=== PATIENT | female | born 1950 | race Caucasian/White ===

== ENCOUNTER 2021-09-16 18:30 | Emergency (ER) | payer MEDICARE, OTHER ==
[~2021-09-16] VITALS: Ht 157.5 cm; Wt 61.7 kg
--- NOTE | 2021-09-16 18:58 | ED General ---
General Stated Complaint: SICK,WEAK,V/D,Pain R LEG, SWELLING Source of Information: Patient History of Present Illness Date Seen by Provider: Sep 16, 2021 Time Seen by Provider: 18:52 Initial Comments PT ARRIVES VIA POV FROM HOME, WANTS WHEELCHAIR ON ARRIVAL DUE TO LEG PAIN PT WITH MULTITUDE OF COMPLAINTS STATES SHE "JUST DOESN'T FEEL GOOD" X 1 1/2 WEEKS C/O PAIN IN RIGHT LEG AND NUMBNESS IN RIGHT FOOT, WITH RIGHT FOOT/ANKLE SWELLING--"IT'S MY SCIATICA"--CHRONIC PROBLEM FOR YEARS AND IS NO DIFFERENT TODAY IN ANY WAY ALSO C/O NAUSEA/VOMITING/DIARRHEA X 1 1/2 WEEKS--NOT EATING OR DRINKING VERY MUCH--ATE PIECE OF TOAST AND GLASS OF CHOCOLATE MILK TODAY. NO VOMITING TODAY AND NOT NAUSEATED NOW, BUT HAS HAD DIARRHEA X 2 TODAY. 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 NO CHANGE IN MEDICATIONS HAS NOT ATTEMPTED TO CONTACT HER REGARDING CURRENT SYMPTOMS PT HAS RHEUMATOID ARTHRITIS, AND IS MAINTAINED ON METHOTREXATE AND PREDNISONE DAILY PT HAS COPD AND CONTINUES TO SMOKE--UP TO 1 1/2 PPD--LAST USED BREO INHALER A COUPLE OF HOURS AGO PT HAS NOT HAD COVID-19 OR FLU VACCINES PT LIVES ALONE DENIES ANY SICK CONTACTS. PCP: AVERY ZAVALETA IN [place], [place] Allergies and Home Medications Allergies Coded Allergies: No Known Drug Allergies (Unverified , 09/16/21) Patient Home Medication List Home Medication List Reviewed: Yes Doxycycline Hyclate (Doxycycline Hyclate) 100 Mg Tablet, 100 MG PO BID Prescribed by: PATRICIA TO on 09/16/212136 Ondansetron (Ondansetron Odt) 4 Mg Tab.rapdis, 4 MG PO Q4H Prescribed by: PATRICIA TO on 09/16/212130 Prednisone (Prednisone) 5 Mg Tablet, 5 MG PO UD Prescribed by: PATRICIA TO on 09/16/212130 Review of Systems Review of Systems Constitutional: see HPI; No chills, No diaphoresis, No dizziness; malaise, we akness EENTM: no symptoms reported Respiratory: see HPI, cough, dyspnea on exertion, short of breath Cardiovascular: no symptoms reported; No chest pain, No palpitations, No syncope Gastrointestinal: see HPI; No abdominal pain; diarrhea, loss of appetite, nausea, vomiting Genitourinary: no symptoms reported; No decreased output, No dysuria Musculoskeletal: see HPI Skin: no symptoms reported; No rash Psychiatric/Neurological: See HPI, Pre-Existing Deficit (CHRONIC NUMBNESS IN RIGHT FOOT) Hematologic/Lymphatic: No Symptoms Reported Immunological/Allergic: no symptoms reported Past Zjbvnye-Wboifq-Doebko Hx Patient Social History Tobacco Use?: Yes Tobacco type used: Cigarettes Smoking Status: Current Everyday Smoker Substance use?: No Alcohol Use?: No Past Medical History Surgeries: Yes (URETHRAL OR URETERAL DILATION) Respiratory: Yes COPD Cardiac: Yes High Cholesterol, Hypertension Neurological: Yes (RIGHT LEG RADICULOPATHY/NEUROPATHY) 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 oz. kg; BMI Method: General Appearance: No Apparent Distress, WD/WN, Other (REEKS OF CIGARETTES. DOES NOT APPEAR ACUTELY ILL OR TO BE IN ANY DISCOMFORT OR DISTRESS. SPEAKS IN FULL SENTENCES) HEENT: PERRL/EOMI Neck: Normal Inspection Respiratory: No Accessory Muscle Use, No Respiratory Distress, Other (DIFFUSE EXPIRATORY WHEEZING AND COARSE RALES/RHONCHI BILATERALLY) Cardiovascular: Regular Rate, Rhythm, No JVD, No Murmur, Normal Peripheral Pulses Gastrointestinal: Non Tender, Soft Extremity: Normal Capillary Refill, Normal Range of Motion, No Calf Tenderness, Pedal Edema (TRACE LOWER LEG SWELLING BILATERALLY ), Other (SWELLING TO RIGHT ANKLE JOINT--PT STATES IS NORMAL AND NO DIFFERENT TODAY. DIFFUSE TENDERNESS TO RIGHT LOWER LEG, ANKLE AND FOOT--HAS SENSATION TO FOOT TO LIGHT TOUCH. MOTOR/SENSORY/VASCULAR INTACT. 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 Norm as Tested Skin: Normal Color, Warm/Dry Progress/Results/Core Measures Suspected Sepsis SIRS Temperature: Pulse: Respiratory Rate: Laboratory Tests 09/16/21 19:10: White Blood Count 8.0 Blood Pressure / Mean: Laboratory Tests 09/16/21 19:10: Creatinine 0.93, Platelet Count 258, Total Bilirubin 0.5 Results/Orders Lab Results Laboratory Tests Test 09/16/21 19:00 09/16/21 19:10 Range/Units Influenza Type A (RT-PCR) Not Detected Not Detecte Influenza Type B (RT-PCR) Not Detected Not Detecte SARS-CoV-2 RNA (RT-PCR) Detected H Not Detecte White Blood Count 8.0 4.3-11.0 10^3/uL Red Blood Count 5.61 H 3.80-5.11 10^6/uL Hemoglobin 14.3 11.5-16.0 g/dL Hematocrit 45 35-52 % Mean Corpuscular Volume 80 80-99 fL Mean Corpuscular Hemoglobin 26 25-34 pg Mean Corpuscular Hemoglobin Concent 32 32-36 g/dL Red Cell Distribution Width 18.7 H 10.0-14.5 % Platelet Count 258 130-400 10^3/uL Mean Platelet Volume 9.4 9.0-12.2 fL Immature Granulocyte % (Auto) 1 % Neutrophils (%) (Auto) 84 H 42-75 % Lymphocytes (%) (Auto) 5 L 12-44 % Monocytes (%) (Auto) 10 0-12 % Eosinophils (%) (Auto) 0 0-10 % Basophils (%) (Auto) 0 0-10 % Neutrophils # (Auto) 6.7 1.8-7.8 10^3/uL Lymphocytes # (Auto) 0.4 L 1.0-4.0 10^3/uL Monocytes # (Auto) 0.8 0.0-1.0 10^3/uL Eosinophils # (Auto) 0.0 0.0-0.3 10^3/uL Basophils # (Auto) 0.0 0.0-0.1 10^3/uL Immature Granulocyte # (Auto) 0.1 0.0-0.1 10^3/uL Neutrophils % (Manual) 85 % Lymphocytes % (Manual) 1 % Monocytes % (Manual) 4 % Eosinophils % (Manual) 0 % Basophils % (Manual) 0 % Band Neutrophils 6 % Reactive Lymphocytes 4 % Polychromasia SLIGHT Poikilocytosis SLIGHT Anisocytosis SLIGHT Elliptocytes SLIGHT Rouleau SLIGHT Erythrocyte Sedimentation Rate 13 0-30 MM/HR D-Dimer 2.10 H 0.00-0.49 UG/ML Sodium Level 133 L 135-145 MMOL/L Potassium Level 3.2 L 3.6-5.0 MMOL/L Chloride Level 98 98-107 MMOL/L Carbon Dioxide Level 20 L 21-32 MMOL/L Anion Gap 15 H 5-14 MMOL/L Blood Urea Nitrogen 19 H 7-18 MG/DL Creatinine 0.93 0.60-1.30 MG/DL Estimat Glomerular Filtration Rate 65 BUN/Creatinine Ratio 20 Glucose Level 110 H 70-105 MG/DL Calcium Level 8.8 8.5-10.1 MG/DL Corrected Calcium 9.3 8.5-10.1 MG/DL Magnesium Level 2.1 1.6-2.4 MG/DL Total Bilirubin 0.5 0.1-1.0 MG/DL Aspartate Amino Transf (AST/SGOT) 49 H 5-34 U/L Alanine Aminotransferase (ALT/SGPT) 30 0-55 U/L Alkaline Phosphatase 57 40-136 U/L Lactate Dehydrogenase 441 H 125-220 U/L C-Reactive Protein High Sensitivity 13.02 H 0.00-0.50 MG/DL Total Protein 6.5 6.4-8.2 GM/DL Albumin 3.4 3.2-4.5 GM/DL Procalcitonin 0.41 H <0.10 NG/ML My Orders Orders - PATRICIA TO DO Ed Iv/Invasive Line Start (09/16/21 18:54) Monitor-Rhythm Ecg Trace Only (09/16/21 18:54) Cbc With Automated Diff (09/16/21 18:54) Comprehensive Metabolic Panel (09/16/21 18:54) Magnesium (09/16/21 18:54) Ua Culture If Indicated (09/16/21 18:54) Fibrin Degradation Products (09/16/21 18:54) Procalcitonin (Pct) (09/16/21 18:54) Hs C Reactive Protein (09/16/21 18:54) Erythrocyte Sedimentation Rate (09/16/21 18:54) LDH (09/16/21 18:54) Chest 1 View, Ap/Pa Only (09/16/21 18:54) Covid 19 Inhouse Test (09/16/21 18:54) Ed Iv/Invasive Line Start (09/16/21 18:54) Influenza A And B By Pcr (09/16/21 18:54) Isolation Central Supply Req (09/16/21 18:54) Fluticasone/Salmeterol 113-14 (Airduo Re (09/16/21 21:00) Dexamethasone Injection (Decadron Inje (09/16/21 19:15) Ed Iv/Invasive Line Start (09/16/21 19:13) Lactated Ringers (Lr 1000 Ml Iv Solution (09/16/21 19:15) Manual Differential (09/16/21 19:10) Fluticasone/Salmeterol 113-14 (Airduo Re (09/16/21 19:27) Ct Angio Chest W (09/16/21 19:54) Iohexol Injection (Omnipaque 350 Mg/Ml 1 (09/16/21 20:00) Received Contrast (Hold Metformin- Contr (09/16/21 20:00) Ns (Ivpb) (Sodium Chloride 0.9% Ivpb Bag (09/16/21 20:00) Medications Given in ED Current Medications Medications Dose Ordered Sig/Minesh Route Start Time Stop Time Status Last Admin Dose Admin Dexamethasone Sodium Phosphate 10 mg ONCE ONCE IV 09/16/21 19:15 09/16/21 19:16 DC 09/16/21 19:29 10 MG Iohexol 100 ml ONCE ONCE IV 09/16/21 20:00 09/16/21 20:01 DC 09/16/21 20:40 61 ML Lactated Ringer's 1,000 ml @ 0 mls/hr Q0M ONCE IV 09/16/21 19:15 09/16/21 19:16 DC 09/16/21 19:30 999 MLS/HR Sodium Chloride 100 ml ONCE ONCE IV 09/16/21 20:00 09/16/21 20:01 DC 09/16/21 20:40 67 ML Vital Signs/I&O 09/16/21 09/16/21 09/16/21 18:49 18:49 21:51 Temp 36.6 Pulse 74 86 Resp 17 20 B/P (MAP) 116/63 (80) 129/67 Pulse Ox 95 O2 Delivery Room Air Room Air Room Air 09/17/21 00:00 Intake Total 1000 ml Balance 1000 ml Capillary Refill : Progress Note : Progress Note PLACED IN ISOLATION ROOM PPE WORN AT ALL TIMES COVID AND FLU TESTING DONE NO COUGH NO DYSPNEA NO HYPOXIA--O2 SAT 100% ON ROOM AIR NO FEVER NO NAUSEA/VOMITING OR DIARRHEA GIVEN INHALER TREATMENT AND IV DECADRON--DECREASED WHEEZING, INCREASED AERATION PT NOT A CANDIDATE FOR MAB, SYMPTOM ONSET IS >10 DAYS. NO DETERIORATION IN PT'S CONDITION DURING ER STAY Diagnostic Imaging Comments CXR--PER RADIOLOGIST REPORT AT 2004 FINDINGS: Heart size and pulmonary vasculature are normal. There are mild interstitial opacities in the lung bases. No pleural effusion or pneumothorax. The osseous structures are intact. IMPRESSION: Mild interstitial opacities in the lung bases consistent with atelectasis, pulmonary edema or atypical infection. CT CHEST ANGIOGRAM--PER RADIOLOGIST REPORT AT 2104 FINDINGS: Vascular: No filling defects within the pulmonary arteries. Thoracic aorta is normal in caliber. Calcification of the aorta and coronary vessels. Thyroid: The thyroid is normal. Mediastinum: Heart size is normal without significant pericardial effusion. No suspicious lymphadenopathy. Lungs and airways: There are patchy groundglass opacities within the lungs. No pleural effusion or pneumothorax. The airways are normal. Upper abdomen: The subphrenic structures are normal. Musculoskeletal: Degenerative changes of the spine without suspicious osseous lesion or compression fracture. IMPRESSION: 1. No findings of pulmonary embolus. 2. Patchy groundglass opacities within the lungs compatible with history of Covid 19. Reviewed: Reviewed by Me Departure Impression Primary Impression: COVID-19 virus infection Additional Impressions: COPD (chronic obstructive pulmonary disease) CHRONIC SCIATICA WITH RIGHT LEG RADICULAR PAIN AND NEUROPATHY Disposition: HOME, SELF-CARE Condition: Stable Departure-Patient Inst. Decision time for Depature: 21:10 Referrals: HEATHER ZAVALETA (PCP/Family) Primary Care Physician Patient Instructions: CHRONIC PAIN, COVID-19 ED, Chronic Obstructive Pulmonary Disease (COPD) (DC), Sciatica (DC) Add. Discharge Instructions: CONTINUE YOUR BREO INHALER PRESCRIBED TYLENOL NEEDED FOR PAIN LOTS OF CLEAR LIQUIDS--WATER, BROTH, JELLO, GATORADE BRATS DIET--BANANAS, RICE, APPLESAUCE, TOAST, SALTINES HOLD YOUR REGULAR DOSE OF PREDNISONE--WILL START YOU ON A TAPERING DOSE OF PREDNISONE FOR THE NEXT SEVERAL DAYS FOLLOW UP WITH YOUR NURSE PRACTITIONER NEXT WEEK FOR FURTHER CARE, RETURN TO ER IF SYMPTOMS WORSEN Scripts Doxycycline Hyclate (Doxycycline Hyclate) 100 Mg Tablet 100 MG PO BID, #20 TAB 0 Refills Prov: PATRICIA TO DO 09/16/21 Prednisone (Prednisone) 5 Mg Tablet 5 MG PO UD, #78 TAB 12 PILLS DAY 1, THEN DECREASE BY 1 PILL A DAY UNTIL GONE Prov: PATRICIA TO DO 09/16/21 Ondansetron (Ondansetron Odt) 4 Mg Tab.rapdis 4 MG PO Q4H for Nausea/Vomiting, #20 TAB Prov: PATRICIA TO DO 09/16/21 PATRICIA TO DO Sep 16, 2021 18:58
[2021-09-16] MEDS ORDERED: LACTATED RINGERS 1,000 ML IV ONE (19:15)
[2021-09-16 19:22] LABS: BASOPHILS % (AUTO) 0 % (0-10); EOSINOPHILS % (AUTO) 0 % (0-10); HEMATOCRIT 45 % (35-52); HEMOGLOBIN 14.3 g/dL (11.5-16.0); LYMPHOCYTES # (AUTO) 0.4 10^3/uL (1.0-4.0); LYMPHOCYTES % (AUTO) 5 % (12-44); MEAN CORPUSCULAR HEMOGLOBIN 26 pg (25-34); MEAN CORPUSCULAR HGB CONC 32 g/dL (32-36); MEAN CORPUSCULAR VOLUME 80 fL (80-99); MEAN PLATELET VOLUME 9.4 fL (9.0-12.2); MONOCYTES # (AUTO) 0.8 10^3/uL (0.0-1.0); MONOCYTES % (AUTO) 10 % (0-12); NEUTROPHILS # (AUTO) 6.7 10^3/uL (1.8-7.8); NEUTROPHILS % (AUTO) 84 % (42-75); PLATELET COUNT 258 10^3/uL (130-400)
[2021-09-16] MEDS ORDERED: RT--FLUTICASONE/SALMETEROL 113-14 (AIRDUO RespiCLICK) IH ONE (19:27)
[2021-09-16 19:40] LABS: BAND NEUTROPHILS 6 %; BASOPHILS % (MANUAL) 0 %; EOSINOPHILS % (MANUAL) 0 %; LYMPHOCYTES % (MANUAL) 1 %; MONOCYTES % (MANUAL) 4 %; NEUTROPHILS % (MANUAL) 85 %; REACTIVE LYMPHOCYTES 4 %
[2021-09-16 19:41] LABS: ANISOCYTOSIS SLIGHT; ELLIPT/OVALOCYTES SLIGHT; ERYTHROCYTE SEDIMENTATION RATE 13 MM/HR (0-30); POIKILOCYTOSIS SLIGHT; POLYCHROMASIA SLIGHT; ROULEAUX SLIGHT
[2021-09-16 19:47] LABS: ALBUMIN 3.4 GM/DL (3.2-4.5); BILIRUBIN,TOTAL 0.5 MG/DL (0.1-1.0); CALCIUM 8.8 MG/DL (8.5-10.1); CREATININE SERUM 0.93 MG/DL (0.60-1.30); MAGNESIUM 2.1 MG/DL (1.6-2.4); POTASSIUM 3.2 MMOL/L (3.6-5.0); TOTAL PROTEIN 6.5 GM/DL (6.4-8.2)
--- NOTE | 2021-09-16 19:57 | Diagnostic Imaging Report ---
EXAMINATION: Chest 1 view. HISTORY: Weakness. COMPARISON: None available. FINDINGS: Heart size and pulmonary vasculature are normal. There are mild interstitial opacities in the lung bases. No pleural effusion or pneumothorax. The osseous structures are intact. IMPRESSION: Mild interstitial opacities in the lung bases consistent with atelectasis, pulmonary edema or atypical infection. Dictated by: Dictated on workstation # [id number]
[2021-09-16] MEDS ORDERED: IOHEXOL 350 MG/ML 100 ML (OMNIPAQUE 350) VIAL IV ONE (20:00)
[2021-09-16] MEDS ORDERED: NS 100 ML (IVPB) BAG IV ONE (20:00)
[2021-09-16] MEDS ORDERED: HOLD METFORMIN - RECEIVED CONTRAST 20 ML VIAL IV SCH (20:00)
--- NOTE | 2021-09-16 20:55 | Diagnostic Imaging Report ---
EXAMINATION: CT angiography of the chest. TECHNIQUE: Contrast enhanced thin section helical images were obtained through the chest with intravenous contrast timed for the optimal opacification of the arterial structures per CTA protocol. Post-processing, reconstructions and interpretation of angiographic images of the vessels was performed. 3D MIP reconstructions were performed and reviewed. All CT scans use one or more of the following dose optimizing techniques: automated exposure control, MA and/or KvP adjustment based on patient size and exam type or iterative reconstruction. HISTORY: Covid positive. COMPARISON: None available. FINDINGS: Vascular: No filling defects within the pulmonary arteries. Thoracic aorta is normal in caliber. Calcification of the aorta and coronary vessels. Thyroid: The thyroid is normal. Mediastinum: Heart size is normal without significant pericardial effusion. No suspicious lymphadenopathy. Lungs and airways: There are patchy groundglass opacities within the lungs. No pleural effusion or pneumothorax. The airways are normal. Upper abdomen: The subphrenic structures are normal. Musculoskeletal: Degenerative changes of the spine without suspicious osseous lesion or compression fracture. IMPRESSION: 1. No findings of pulmonary embolus. 2. Patchy groundglass opacities within the lungs compatible with history of Covid 19. Dictated by: Dictated on workstation # [id number]
[2021-09-16] MEDS ORDERED: RT--FLUTICASONE/SALMETEROL 113-14 (AIRDUO RespiCLICK) IH SCH (21:00)
[2021-09-16] MEDS ORDERED: ONDA4TAB11 PO (21:31)
[2021-09-16] MEDS ORDERED: PRED5TAB PO (21:31)
[2021-09-16] MEDS ORDERED: DOXY100T2 PO (21:37)
[2021-09-16 21:51] VITALS: BP 129/67
== END 2021-09-16 21:51 | disposition home or self-care (01) ==
LOC: ER 18:45
DX: U07.1 COVID-19 (principal); J44.9 Chronic obstructive pulmonary disease, unspecified; M54.31 Sciatica, right side; G62.9 Polyneuropathy, unspecified; I10 Essential (primary) hypertension; M06.9 Rheumatoid arthritis, unspecified; F17.210 Nicotine dependence, cigarettes, uncomplicated
CPT/HCPCS: 36415; 71045; 71275; 80053; 83615; 83735; 84145; 85007; 85027; 85379; 85652; 86141; 87636; 93041

== ENCOUNTER → 2021-11-08 | Outpatient (CLI) | payer MEDICARE ==
[~2021-11-08] MED LIST: DOXY100T2 PO; ONDA4TAB11 PO; PRED5TAB PO
--- NOTE | 2021-11-08 11:30 | Diagnostic Imaging Report ---
PROCEDURE: MR imaging of the brain without contrast. TECHNIQUE: Multiplanar, multisequence MR imaging of the brain was performed without contrast. INDICATION: Right-sided numbness and weakness. FINDINGS: The study is somewhat limited and was ended early due to the patient getting sick during the exam. Gradient and T1-weighted sequences could not be obtained. There appears to be a mass in the high left parietal lobe with surrounding vasogenic edema. There are significant periventricular and subcortical white matter changes noted, consistent with chronic microvascular ischemia. There is no midline shift. No definite diffusion restriction is seen. There is moderate motion artifact on the study. IMPRESSION: There appears to be a mass in the high left parietal lobe with surrounding vasogenic edema. A repeat study with and without contrast when patient is clinically able would be useful for improved characterization. Dictated by: Dictated on workstation # [id number]
--- NOTE | 2021-11-08 12:41 | Diagnostic Imaging Report ---
PROCEDURE: US carotid duplex, bilateral. TECHNIQUE: Multiple real-time grayscale images were obtained over the carotid arteries in various projections, bilaterally. Additional spectral analysis and color Doppler duplex images were also obtained. INDICATION: CVA. Minimal plaque is noted in both carotid systems. Velocities are normal bilaterally. No velocity elevation or stenosis is seen. Both vertebral arteries show antegrade flow. IMPRESSION: No evidence of a hemodynamically significant stenosis. Parameters based on the consensus panel Rodriguez-Scale and Doppler ultrasound criteria published June 2003, Radiology, Volume 229. DOPPLER (peak systolic velocity M/S Right Left CCA .63 .79 ICA Proximal .59 .70 ICA Mid .89 .96 ICA Distal .96 .67 RATIO 1.53 1.21 ECA .91 .93 VERT .86 .75 Dictated by: Dictated on workstation # [id number]
== END ==
LOC: RAD 09:15
PROVIDERS: ATTEND Psychiatry & Neurology Neurology
DX: I67.2 Cerebral atherosclerosis (principal); I63.9 Cerebral infarction, unspecified
CPT/HCPCS: 70551; 93880

== ENCOUNTER → 2021-11-11 | Outpatient (CLI) | payer MEDICARE ==
[2021-11-11 15:10] LABS: BILIRUBIN,URINE NEGATIVE (NEGATIVE); CLARITY,URINE CLEAR; COLOR,URINE YELLOW; GLUCOSE, URINE (UA) NEGATIVE (NEGATIVE); KETONES,URINE NEGATIVE (NEGATIVE); LEUKOCYTE ESTERASE ,URINE NEGATIVE (NEGATIVE); NITRITE,URINE NEGATIVE (NEGATIVE); PH,URINE 5.5 (5-9); PROTEIN,URINE NEGATIVE (NEGATIVE)
[2021-11-11 15:17] LABS: BACTERIA,URINE NEGATIVE /HPF; SQUAMOUS EPITHELIAL CELL,UR RARE /HPF
== END ==
LOC: CVS 14:34
PROVIDERS: ATTEND Internal Medicine
DX: Z01.89 Encounter for other specified special examinations (principal)
CPT/HCPCS: 81000

== ENCOUNTER → 2021-11-24 | Outpatient (CLI) | payer MEDICARE ==
[~2021-11-24] MED LIST changes: +CATHETER FLUSH 10 ML SYR IV PRN; +HOLD METFORMIN - RECEIVED CONTRAST 20 ML VIAL IV SCH; +IOHEXOL 350 MG/ML 100 ML (OMNIPAQUE 350) VIAL IV ONE; +NS 100 ML (IVPB) BAG IV ONE
--- NOTE | 2021-11-24 14:59 | Diagnostic Imaging Report ---
EXAMINATION: CT abdomen and pelvis with intravenous contrast. TECHNIQUE: Multiple contiguous axial images were obtained through the abdomen and pelvis after the uneventful administration of intravenous contrast. All CT scans use one or more of the following dose optimizing techniques: automated exposure control, MA and/or KvP adjustment based on patient size and exam type or iterative reconstruction. HISTORY: RUQ PAIN COMPARISON: None available. FINDINGS: Lung bases: Bibasilar dependent atelectasis. Solid organs: The liver is normal without focal lesion. The gallbladder is normal. There is no biliary ductal dilation. Pancreas is normal. Spleen is normal. Adrenal glands are normal. There is mild right hydronephrosis. There is a nonobstructing right renal calculus measuring up to 1.1 cm. The left kidney is unremarkable. Bowel: The stomach and small bowel are normal without obstruction. The colon and appendix are normal. Peritoneum: There is no intraperitoneal free fluid or free air. No suspicious lymphadenopathy. Vasculature: Calcification of the aorta without aneurysm. Musculoskeletal: Degenerative changes of the spine without suspicious osseous lesion or compression fracture. Pelvis: The uterus and adnexa are normal. The urinary bladder is normal. IMPRESSION: 1. Mild right hydronephrosis. This may be secondary to a nonvisualized or recently passed stone, stricture, or infection. Recommend correlation with urinalysis. 2. Nonobstructing right renal calculus measuring up to 1.1 cm. Dictated by: Dictated on workstation # [id number]
--- NOTE | 2021-11-24 17:06 | Diagnostic Imaging Report ---
PROCEDURE: CT lumbar spine without contrast. TECHNIQUE: Multiple contiguous axial images were obtained through the lumbar spine without the use of intravenous contrast. Sagittal and coronal reformations were then performed. Auto Exposure Controls were utilized during the CT exam to meet ALARA standards for radiation dose reduction. INDICATION: Right knee and foot numbness, symptoms of 2 month's duration. I have no previous for relevant comparison. Reconstruction views showed slight 2 mm grade 1 degenerative anterolisthesis of L4 on L5, remaining levels align normally. The pedicles and pars were intact lumbar statures are normal no acute vertebral body or posterior element of bony abnormality. No acute or chronic fracture. This patient has a large stone within a right renal lower pole calyx measuring 8.3 mm, right kidney is at least mildly dilated through its extrarenal pelvis. Visualized aorta nonaneurysmal. There is no paravertebral mass, hemorrhage or fluid collection. There are degenerative changes to the discs endplates and facets throughout the lumbar spine. L1-L2: Endplate osteophytes and disc material result in moderate canal and [id number] left foraminal stenosis. L2-L3: There is mild spinal canal and mild left greater than right foraminal stenosis. L3-L4: There is thickened ligament flava, disc bulge, endplate osteophytes and facet arthrosis with severe central canal stenosis with mild to moderate left and moderate to severe right foraminal narrowing. L4-L5: Thickened ligament flava facet arthrosis, disc material and endplate osteophytes severely stenosing thecal sac. There is moderate to severe right and moderate left foraminal stenosis as well as a severe right and moderate left lateral recess impingement. L5-S1: There is some mild canal and biforaminal stenosis. IMPRESSION: 1. Multilevel degenerative changes with substantial degrees of spinal canal and neural foraminal stenoses listed level by level above. Slight grade 1 anterolisthesis degenerative L4 and L4 with no acute or chronic fracture. 2. Right nephrolithiasis and at least mild hydroureteronephrosis partially visualized. Dictated by: Dictated on workstation # [id number]
--- NOTE | 2021-11-24 17:20 | Diagnostic Imaging Report ---
PROCEDURE: CT cervical spine without contrast. TECHNIQUE: Multiple contiguous axial images were obtained through the cervical spine without the use of intravenous contrast. Sagittal and coronal reformations were then performed. Auto Exposure Controls were utilized during the CT exam to meet ALARA standards for radiation dose reduction. INDICATION: Right lower extremity weakness and numbness. COMPARISON: None. FINDINGS: Grade 1 anterolisthesis of C6 on C7. Vertebral body heights are preserved. No fractures. Spondylotic changes are greatest at C3-C5 where disc osteophyte complexes appear to result in only mild spinal canal narrowing. There is also moderate neural foraminal narrowing on the right at these levels. Visualized paravertebral soft tissues are unremarkable. Lung apices are clear. IMPRESSION: 1. No acute CT findings in the cervical spine. 2. Spondylotic changes result in moderate neural foraminal narrowing on the right and probable mild spinal canal narrowing at C3-C5. This could be better evaluated with MRI. Dictated by: Dictated on workstation # [id number]
== END ==
LOC: RAD 13:45
PROVIDERS: ATTEND Physician Assistant
DX: M47.816 Spondylosis without myelopathy or radiculopathy, lumbar region (principal); M43.16 Spondylolisthesis, lumbar region; M25.78 Osteophyte, vertebrae; M48.061 Spinal stenosis, lumbar region without neurogenic claudication; M51.26 Other intervertebral disc displacement, lumbar region; M48.07 Spinal stenosis, lumbosacral region; M48.02 Spinal stenosis, cervical region; N13.2 Hydronephrosis with renal and ureteral calculous obstruction
CPT/HCPCS: 72125; 72131; 74177